=== PATIENT | male | born 1995 | race Caucasian/White ===

== ENCOUNTER 2016-12-25 16:13 | Emergency (ER) | payer OTHER ==
[~2016-12-25] VITALS: Ht 180.3 cm; Wt 72.5 kg
[2016-12-25] MEDS ORDERED: LORATADINE 10 MG TABLET PO ONE (17:45)
[2016-12-25 19:01] VITALS: BP 131/67
== END 2016-12-25 19:04 | disposition home or self-care (01) ==
LOC: EMS 16:17
DX: L50.9 Urticaria, unspecified (principal); J45.909 Unspecified asthma, uncomplicated
CPT/HCPCS: 99282

== ENCOUNTER 2017-09-03 20:41 | Emergency (ER) | payer OTHER ==
[~2017-09-03] VITALS: Ht 180.3 cm; Wt 74.5 kg
[2017-09-03] MEDS ORDERED: CEPH500 PO (20:54)
[2017-09-04 00:45] VITALS: BP 136/87
== END 2017-09-04 01:20 | disposition left against medical advice (07) ==
LOC: EMS 20:43
DX: Z53.21 Procedure and treatment not carried out due to patient leaving prior to being seen by health care provider (principal)

== ENCOUNTER 2017-09-08 11:53 | Emergency (ER) | payer OTHER ==
[~2017-09-08] VITALS: Ht 177.8 cm; Wt 74.5 kg
[~2017-09-08 11:53] MED LIST: CEPH500 PO
[2017-09-08 11:57] VITALS: BP 140/59
== END 2017-09-08 13:14 | disposition home or self-care (01) ==
LOC: EMS 11:54
DX: Z48.02 Encounter for removal of sutures (principal); J45.909 Unspecified asthma, uncomplicated
CPT/HCPCS: 99282

== ENCOUNTER 2019-04-03 17:41 | Emergency (ER) | payer MEDICAID, OTHER ==
[~2019-04-03] VITALS: Ht 180.3 cm; Wt 74.5 kg
[~2019-04-03 17:41] MED LIST changes: -CEPH500 PO; +DIVA500T52 PO; +DSS100 PO; +FLUO-191 PO; +FOLI1 PO; +MULT-1239 PO; +NALT50TA6 PO; +OLAN5TAB40 PO; +OMEP20 PO; +THIA100T67 PO
[2019-04-03] MEDS ORDERED: SPIR50 PO (18:02)
[2019-04-03 19:32] LABS: BASOPHILS % (AUTO) 0.4 % (0.0-2.0); HEMATOCRIT 43.9 % (41-53); HEMOGLOBIN 15.2 g/dL (13.5-17.5); LYMPHOCYTES # (AUTO) 1.6 K/uL (1.0-4.8); LYMPHOCYTES % (AUTO) 22.5 % (22.0-44.0); MEAN CORPUSCULAR HGB CONC 34.6 G/dL (31.0-37.0); MEAN CORPUSCULAR VOLUME 89 fL (80-100); MONOCYTES # (AUTO) 0.4 K/uL (0.1-1.0); MONOCYTES % (AUTO) 6.2 % (2.0-9.0); NEUTROPHILS # (AUTO) 5.1 K/uL (1.8-7.7); NEUTROPHILS % (AUTO) 69.9 % (40.0-70.0); PLATELET COUNT (AUTO) 258 K/uL (150-450); RED BLOOD CELL COUNT(AUTO) 4.91 MIL/uL (4.50-5.90); RED CELL DISTRIBUTION WIDTH 12.3 % (11.5-14.5)
[2019-04-03] MEDS ORDERED: SODIUM CHLORIDE 0.9% 100 ML ONE (19:45)
[2019-04-03] MEDS ORDERED: IOVERSOL 320 MG/ML 100 ML VIAL ONE (19:45)
[2019-04-03 19:48] LABS: ANION GAP 6 mmol/L (8-16); CALCIUM, TOTAL 9.4 mg/dL (8.8-10.5); CARBON DIOXIDE 31 mmol/L (22-29); CHLORIDE 100 mmol/L (98-107); CREATININE 0.83 mg/dL (0.60-1.30); GLOMERULAR FILTR. RATE CALC > 60 mL/min (>60); GLUCOSE,RANDOM 98 mg/dL (70-110); POTASSIUM 3.2 mmol/L (3.5-5.1); SODIUM SERUM 137 mmol/L (136-145); UREA NITROGEN, BLOOD 13 mg/dL (7-18)
[2019-04-03 19:54] LABS: ALANINE AMINOTRANSFERASE 36 U/L (12-78); ALBUMIN 4.8 g/dL (3.4-5.0); ALKALINE PHOSPHATASE 75 U/L (46-116); ASPARTATE AMINOTRANSFERASE 29 U/L (15-37); BILIRUBIN,TOTAL 0.9 mg/dL (0.1-1.0); TOTAL PROTEIN, SERUM 7.7 g/dL (6.4-8.2)
[2019-04-03 21:23] VITALS: BP 126/88
== END 2019-04-03 21:38 | disposition home or self-care (01) ==
LOC: EMS 17:43
DX: K62.5 Hemorrhage of anus and rectum (principal); J45.909 Unspecified asthma, uncomplicated; F31.9 Bipolar disorder, unspecified; F20.9 Schizophrenia, unspecified; F17.210 Nicotine dependence, cigarettes, uncomplicated
CPT/HCPCS: 36415; 74177; 80053; 85025; 99284; J7050; Q9967

== ENCOUNTER 2019-04-29 17:46 | Emergency (ER) | payer OTHER ==
[~2019-04-29] VITALS: Ht 180.3 cm; Wt 74.5 kg
[~2019-04-29 17:46] MED LIST changes: -DIVA500T52 PO; -DSS100 PO; -FLUO-191 PO; -FOLI1 PO; -MULT-1239 PO; -NALT50TA6 PO; -OLAN5TAB40 PO; -OMEP20 PO; +SPIR50 PO; -THIA100T67 PO
[2019-04-29 19:01] LABS: ANION GAP 9 mmol/L (8-16); CALCIUM, TOTAL 9.2 mg/dL (8.8-10.5); CARBON DIOXIDE 27 mmol/L (22-29); CHLORIDE 104 mmol/L (98-107); CREATININE 0.97 mg/dL (0.60-1.30); GLOMERULAR FILTR. RATE CALC > 60 mL/min (>60); GLUCOSE,RANDOM 84 mg/dL (70-110); SODIUM SERUM 140 mmol/L (136-145); UREA NITROGEN, BLOOD 16 mg/dL (7-18)
[2019-04-29 19:04] LABS: BASOPHILS % (AUTO) 0.2 % (0.0-2.0); EOSINOPHILS % (AUTO) 0.8 % (1.0-6.0); HEMATOCRIT 45.9 % (41-53); HEMOGLOBIN 15.5 g/dL (13.5-17.5); LYMPHOCYTES # (AUTO) 1.8 K/uL (1.0-4.8); LYMPHOCYTES % (AUTO) 15.2 % (22.0-44.0); MEAN CORPUSCULAR HEMOGLOBIN 30.2 pg (26.0-34.0); MEAN CORPUSCULAR HGB CONC 33.8 G/dL (31.0-37.0); MEAN CORPUSCULAR VOLUME 89 fL (80-100); MONOCYTES # (AUTO) 0.8 K/uL (0.1-1.0); MONOCYTES % (AUTO) 6.5 % (2.0-9.0); NEUTROPHILS # (AUTO) 9.2 K/uL (1.8-7.7); NEUTROPHILS % (AUTO) 77.3 % (40.0-70.0); PLATELET COUNT (AUTO) 269 K/uL (150-450); RED BLOOD CELL COUNT(AUTO) 5.13 MIL/uL (4.50-5.90); RED CELL DISTRIBUTION WIDTH 12.2 % (11.5-14.5)
[2019-04-29 19:07] LABS: ALANINE AMINOTRANSFERASE 22 U/L (12-78); ALBUMIN 4.5 g/dL (3.4-5.0); ALKALINE PHOSPHATASE 63 U/L (46-116); ASPARTATE AMINOTRANSFERASE 23 U/L (15-37); BILIRUBIN,TOTAL 0.8 mg/dL (0.1-1.0); TOTAL PROTEIN, SERUM 7.4 g/dL (6.4-8.2)
[2019-04-29 19:14] LABS: APPEARANCE,URINE CLOUDY (CLEAR); BILIRUBIN,URINE NEGATIVE (NEGATIVE); GLUCOSE, URINE (UA) NEGATIVE (NEGATIVE); KETONES,URINE NEGATIVE (NEGATIVE); LEUKOCYTE ESTERASE ,URINE LARGE (NEGATIVE); NITRATE,URINE NEGATIVE (NEGATIVE); OCCULT BLOOD,URINE MODERATE (NEGATIVE); PH,URINE 5.5 (5.0-8.0); PROTEIN,URINE POS 1+ (NEGATIVE)
[2019-04-29 19:41] LABS: BACTERIA,URINE Few /HPF (None Seen); SQUAMOUS EPITHELIAL CELL,UR Few /LPF (None Seen); WBC,URINE 51-100 /HPF (0-5)
[2019-04-29 19:52] LABS: PLATELET MORPHOLOGY COMMENT NORMAL
[2019-04-29] MEDS ORDERED: CefTRIAXone SODIUM 1 GM/VIAL IM ONE (21:45)
[2019-04-29] MEDS ORDERED: AZITHROMYCIN 250 MG TABLET PO ONE (21:45)
[2019-04-29] MEDS ORDERED: LIDOCAINE/PF 1% 2 ML VIAL IM ONE (22:00)
[2019-04-29 22:15] VITALS: BP 121/77
== END 2019-04-29 22:29 | disposition home or self-care (01) ==
LOC: EMS 17:46
DX: N39.0 Urinary tract infection, site not specified (principal); A64 Unspecified sexually transmitted disease; J45.909 Unspecified asthma, uncomplicated; F31.9 Bipolar disorder, unspecified; F20.9 Schizophrenia, unspecified; F17.210 Nicotine dependence, cigarettes, uncomplicated
CPT/HCPCS: 36415; 80053; 81001; 85025; 87077; 87086; 87186; 87491; 87591; 96372; 99283; 99406; J0696; J3490

== ENCOUNTER 2019-11-15 20:40 | Emergency (ER) | payer MEDICAID, OTHER ==
[~2019-11-15] VITALS: Ht 180.3 cm; Wt 74.5 kg
[2019-11-15 20:49] VITALS: BP 126/90
== END 2019-11-15 21:24 | disposition left against medical advice (07) ==
LOC: EMS 20:44
DX: Z53.21 Procedure and treatment not carried out due to patient leaving prior to being seen by health care provider (principal)

== ENCOUNTER 2019-12-06 01:00 | Emergency (ER) | payer MEDICAID ==
[~2019-12-06] VITALS: Ht 180.3 cm; Wt 72.7 kg
[2019-12-06] MEDS ORDERED: SODIUM CHLORIDE 0.9% 1,000 ML IV ONE (01:45)
[2019-12-06] MEDS ORDERED: MORPHINE SULFATE 2 MG/ML SYRINGE IVP ONE (01:45)
[2019-12-06 01:52] VITALS: BP 127/75
[2019-12-06 01:56] LABS: BASOPHILS % (AUTO) 0.1 % (0.0-2.0); EOSINOPHILS % (AUTO) 0.1 % (1.0-6.0); HEMATOCRIT 41.2 % (41-53); HEMOGLOBIN 14.5 g/dL (13.5-17.5); LYMPHOCYTES # (AUTO) 0.9 K/uL (1.0-4.8); LYMPHOCYTES % (AUTO) 6.4 % (22.0-44.0); MEAN CORPUSCULAR HEMOGLOBIN 30.3 pg (26.0-34.0); MEAN CORPUSCULAR HGB CONC 35.2 G/dL (31.0-37.0); MEAN CORPUSCULAR VOLUME 86 fL (80-100); MONOCYTES # (AUTO) 0.5 K/uL (0.1-1.0); MONOCYTES % (AUTO) 3.7 % (2.0-9.0); RED BLOOD CELL COUNT(AUTO) 4.79 MIL/uL (4.50-5.90); RED CELL DISTRIBUTION WIDTH 12.7 % (11.5-14.5)
[2019-12-06 01:57] LABS: NEUTROPHILS % (AUTO) 89.7 % (40.0-70.0)
[2019-12-06 02:05] LABS: INR 1.1 (0.9-1.1)
[2019-12-06 02:06] LABS: ANION GAP 9 mmol/L (8-16); CALCIUM, TOTAL 8.9 mg/dL (8.8-10.5); CARBON DIOXIDE 28 mmol/L (22-29); CHLORIDE 102 mmol/L (98-107); GLOMERULAR FILTR. RATE CALC > 60 mL/min (>60); GLUCOSE,RANDOM 112 mg/dL (70-110); SODIUM SERUM 139 mmol/L (136-145); UREA NITROGEN, BLOOD 20 mg/dL (7-18)
[2019-12-06 02:16] LABS: POTASSIUM 3.2 mmol/L (3.5-5.1)
[2019-12-06 02:25] LABS: PLATELET COUNT (AUTO) 286 K/uL (150-450)
== END 2019-12-06 02:07 | disposition short-term general hospital (02) ==
LOC: EMS 01:00
DX: S38.2 Traumatic amputation of external genital organs (principal); J45.909 Unspecified asthma, uncomplicated; F31.9 Bipolar disorder, unspecified; F20.9 Schizophrenia, unspecified; F17.210 Nicotine dependence, cigarettes, uncomplicated; W45.8XXA Other foreign body or object entering through skin, initial encounter; Y93.89 Activity, other specified; Y92.89 Other specified places as the place of occurrence of the external cause; Y99.8 Other external cause status
CPT/HCPCS: 36415; 80048; 85025; 85610; 99291; J7030; J2270

== ENCOUNTER 2019-12-17 13:18 | Emergency (ER) | payer MEDICAID ==
[~2019-12-17] VITALS: Ht 180.3 cm; Wt 72.7 kg
[2019-12-17] MEDS ORDERED: OLAN2.5T3 PO (13:21)
[2019-12-17] MEDS ORDERED: RISP1 PO (13:21)
[2019-12-17 15:25] VITALS: BP 122/74
== END 2019-12-17 15:26 | disposition home or self-care (01) ==
LOC: EMS 13:21
DX: Z48.02 Encounter for removal of sutures (principal); J45.909 Unspecified asthma, uncomplicated; F31.9 Bipolar disorder, unspecified; F20.9 Schizophrenia, unspecified; F17.210 Nicotine dependence, cigarettes, uncomplicated

== ENCOUNTER 2020-02-28 02:39 | Inpatient (IN) | payer MEDICAID ==
[~2020-02-28] VITALS: Ht 180.3 cm; Wt 80.0 kg
[~2020-02-28 02:39] MED LIST changes: +OLAN2.5T3 PO; +RISP1TAB27 PO
[2020-02-28] MEDS ORDERED: SODIUM CHLORIDE 0.9% 1,000 ML IV ONE ×2 (02:55→03:00)
[2020-02-28] MEDS ORDERED: MORPHINE SULFATE 4 MG/ML SYRINGE IVP ONE (03:00)
[2020-02-28] MEDS ORDERED: ONDANSETRON HCL 4 MG/2 ML VIAL IVP ONE ×2 (03:00→12:00)
[2020-02-28 03:13] LABS: BASOPHILS % (AUTO) 0.4 % (0.0-2.0); EOSINOPHILS % (AUTO) 0.7 % (1.0-6.0); HEMATOCRIT 42.8 % (41-53); HEMOGLOBIN 15.2 g/dL (13.5-17.5); LYMPHOCYTES # (AUTO) 0.9 K/uL (1.0-4.8); LYMPHOCYTES % (AUTO) 15.2 % (22.0-44.0); MEAN CORPUSCULAR HEMOGLOBIN 30.6 pg (26.0-34.0); MEAN CORPUSCULAR HGB CONC 35.5 G/dL (31.0-37.0); MEAN CORPUSCULAR VOLUME 86 fL (80-100); MONOCYTES # (AUTO) 0.4 K/uL (0.1-1.0); MONOCYTES % (AUTO) 7.4 % (2.0-9.0); NEUTROPHILS # (AUTO) 4.7 K/uL (1.8-7.7); NEUTROPHILS % (AUTO) 76.3 % (40.0-70.0); PLATELET COUNT (AUTO) 211 K/uL (150-450); RED BLOOD CELL COUNT(AUTO) 4.96 MIL/uL (4.50-5.90); RED CELL DISTRIBUTION WIDTH 12.3 % (11.5-14.5)
[2020-02-28] MEDS ORDERED: CeFAZolin 2 GM/DEXTROSE 50 ML IV ONE (03:15)
[2020-02-28] MEDS ORDERED: PERTUSS(ACELL),DIPH,TET VAC/PF 0.5 ML VIAL IM ONE (03:15)
[2020-02-28 03:28] LABS: ANION GAP 11 mmol/L (8-16); CALCIUM, TOTAL 8.8 mg/dL (8.8-10.5); CARBON DIOXIDE 25 mmol/L (22-29); CHLORIDE 103 mmol/L (98-107); CREATININE 1.04 mg/dL (0.60-1.30); GLOMERULAR FILTR. RATE CALC > 60 mL/min (>60); GLUCOSE,RANDOM 133 mg/dL (70-110); POTASSIUM 3.3 mmol/L (3.5-5.1); SODIUM SERUM 139 mmol/L (136-145); UREA NITROGEN, BLOOD 15 mg/dL (7-18)
[2020-02-28 03:33] LABS: ALANINE AMINOTRANSFERASE 26 U/L (12-78); ALBUMIN 4.2 g/dL (3.4-5.0); ALKALINE PHOSPHATASE 60 U/L (46-116); ASPARTATE AMINOTRANSFERASE 18 U/L (15-37); BILIRUBIN,TOTAL 0.6 mg/dL (0.1-1.0); TOTAL PROTEIN, SERUM 7.1 g/dL (6.4-8.2)
[2020-02-28 03:53] LABS: APPEARANCE,URINE CLEAR (CLEAR); BILIRUBIN,URINE NEGATIVE (NEGATIVE); GLUCOSE, URINE (UA) NEGATIVE (NEGATIVE); KETONES,URINE NEGATIVE (NEGATIVE); LEUKOCYTE ESTERASE ,URINE NEGATIVE (NEGATIVE); NITRATE,URINE NEGATIVE (NEGATIVE); OCCULT BLOOD,URINE LARGE (NEGATIVE); PROTEIN,URINE NEGATIVE (NEGATIVE); UROBILINOGEN,URINE 0.2 mg/dL (<=1.0)
[2020-02-28 03:59] LABS: AMPHET/METH SCREEN,URINE NEGATIVE (NEGATIVE); BARBITURATE SCREEN, URINE NEGATIVE (NEGATIVE); BENZODIAZEPINES SCREEN,URINE NEGATIVE (NEGATIVE); CANNABINOID SCREEN,URINE NEGATIVE (NEGATIVE); COCAINE SCREEN,URINE NEGATIVE (NEGATIVE); METHADONE SCREEN, URINE NEGATIVE (NEGATIVE); OPIATE SCREEN,URINE NEGATIVE (NEGATIVE)
[2020-02-28 04:00] LABS: PHENCYCLIDINE SCREEN,URINE NEGATIVE (NEGATIVE)
[2020-02-28] MEDS ORDERED: LIDOCAINE/PF 1% 30 ML VIAL ONE (04:05)
[2020-02-28] MEDS ORDERED: RINGERS SOLUTION,LACTATED 1,000 ML IV ONE (04:10)
[2020-02-28 04:14] LABS: BACTERIA,URINE Rare /HPF (None Seen); SQUAMOUS EPITHELIAL CELL,UR Few /LPF (None Seen); WBC,URINE 0-2 /HPF (0-5)
[2020-02-28] MEDS ORDERED: FentaNYL CITRATE-PF 100 MCG/2 ML VIAL IVP PRN (04:30)
[2020-02-28] MEDS ORDERED: HYDROmorphone 2 MG/ML SYRINGE IVP PRN (04:30)
[2020-02-28] MEDS ORDERED: MEPERIDINE-PF 25 MG/ML VIAL IVP PRN (04:30)
[2020-02-28] MEDS ORDERED: BACITRACIN 28.4 GM OINTMENT TP ONE (04:55)
[2020-02-28] MEDS ORDERED: SUGAMMADEX SODIUM 200 MG/2 ML VIAL IVP ONE (04:59)
[2020-02-28] MEDS ORDERED: ACETAMINOPHEN 325 MG TABLET PO PRN (05:00)
[2020-02-28] MEDS ORDERED: 0.9% SODIUM CHLORIDE 10 ML SYRINGE IVP PRN (05:00)
[2020-02-28] MEDS ORDERED: ONDANSETRON HCL 4 MG/2 ML VIAL IM PRN (05:00)
[2020-02-28] MEDS ORDERED: MORPHINE SULFATE 2 MG/ML SYRINGE IVP PRN (05:00)
[2020-02-28] MEDS ORDERED: HYDROmorphone 2 MG/ML SYRINGE ONE (05:18)
[2020-02-28] MEDS ORDERED: HYDROCODONE/ACETAMINOPHEN 5-325 MG TABLET PO PRN (05:30)
[2020-02-28 06:00] VITALS: BP 133/78
[2020-02-28 07:23] LABS: BASOPHILS % (AUTO) 0.1 % (0.0-2.0); EOSINOPHILS % (AUTO) 0 % (1.0-6.0); HEMATOCRIT 43.8 % (41-53); HEMOGLOBIN 15.5 g/dL (13.5-17.5); LYMPHOCYTES # (AUTO) 0.5 K/uL (1.0-4.8); LYMPHOCYTES % (AUTO) 5.1 % (22.0-44.0); MEAN CORPUSCULAR HEMOGLOBIN 30.8 pg (26.0-34.0); MEAN CORPUSCULAR HGB CONC 35.3 G/dL (31.0-37.0); MEAN CORPUSCULAR VOLUME 87 fL (80-100); MONOCYTES # (AUTO) 0.2 K/uL (0.1-1.0); MONOCYTES % (AUTO) 1.7 % (2.0-9.0); NEUTROPHILS # (AUTO) 8.9 K/uL (1.8-7.7); PLATELET COUNT (AUTO) 234 K/uL (150-450); RED BLOOD CELL COUNT(AUTO) 5.02 MIL/uL (4.50-5.90); RED CELL DISTRIBUTION WIDTH 12.3 % (11.5-14.5)
[2020-02-28 07:31] LABS: NEUTROPHILS % (AUTO) 93.1 % (40.0-70.0)
[2020-02-28] MEDS: OXYGEN THERAPY IH SCH ×2 (08:00→20:00)
[2020-02-28 11:23] VITALS: BP 127/69
[2020-02-28] MEDS ORDERED: FentaNYL CITRATE-PF 100 MCG/2 ML VIAL IVP ONE (12:00)
[2020-02-28] MEDS ORDERED: PROPOFOL 1% 20 ML VIAL IVP ONE (12:00)
[2020-02-28] MEDS ORDERED: SUCCINYLCHOLINE CHLORIDE 20 MG/ML 10 ML VIAL IVP ONE (12:00)
[2020-02-28] MEDS ORDERED: MIDAZOLAM HCL 2 MG/2 ML VIAL IVP ONE (12:00)
[2020-02-28] MEDS ORDERED: DEXAMETHASONE SOD PHOS 4 MG/ML VIAL IVP ONE (12:00)
[2020-02-28] MEDS ORDERED: LIDOCAINE/PF 2% 5 ML VIAL INJ ONE (12:00)
[2020-02-28] MEDS ORDERED: POTASSIUM CHLORIDE 20 MEQ ER TABLET PO ONE (13:30)
[2020-02-28 15:31] VITALS: BP 130/83
[2020-02-28 19:53] VITALS: BP 124/74
[2020-02-28 23:56] VITALS: BP 128/73
[2020-02-29 04:00] VITALS: BP 111/72
[2020-02-29 07:27] LABS: BASOPHILS % (AUTO) 0.1 % (0.0-2.0); EOSINOPHILS % (AUTO) 0.1 % (1.0-6.0); HEMATOCRIT 43.2 % (41-53); HEMOGLOBIN 15.3 g/dL (13.5-17.5); LYMPHOCYTES # (AUTO) 2.2 K/uL (1.0-4.8); LYMPHOCYTES % (AUTO) 18.2 % (22.0-44.0); MEAN CORPUSCULAR HEMOGLOBIN 30.9 pg (26.0-34.0); MEAN CORPUSCULAR HGB CONC 35.4 G/dL (31.0-37.0); MEAN CORPUSCULAR VOLUME 87 fL (80-100); MONOCYTES # (AUTO) 1.2 K/uL (0.1-1.0); NEUTROPHILS # (AUTO) 8.7 K/uL (1.8-7.7); NEUTROPHILS % (AUTO) 71.6 % (40.0-70.0); PLATELET COUNT (AUTO) 236 K/uL (150-450); RED BLOOD CELL COUNT(AUTO) 4.95 MIL/uL (4.50-5.90); RED CELL DISTRIBUTION WIDTH 12.2 % (11.5-14.5)
[2020-02-29 07:34] LABS: ANION GAP 8 mmol/L (8-16); CALCIUM, TOTAL 9.1 mg/dL (8.8-10.5); CARBON DIOXIDE 29 mmol/L (22-29); CHLORIDE 105 mmol/L (98-107); CREATININE 0.86 mg/dL (0.60-1.30); GLOMERULAR FILTR. RATE CALC > 60 mL/min (>60); GLUCOSE,RANDOM 102 mg/dL (70-110); POTASSIUM 3.9 mmol/L (3.5-5.1); SODIUM SERUM 142 mmol/L (136-145); UREA NITROGEN, BLOOD 17 mg/dL (7-18)
[2020-02-29 07:50] VITALS: BP 117/65
[2020-02-29] MEDS: OXYGEN THERAPY IH SCH (08:00)
[2020-02-29 11:56] VITALS: BP 118/69
[2020-02-29 15:53] VITALS: BP 123/69
[2020-02-29 19:30] VITALS: BP 115/65
[2020-02-29 23:15] VITALS: BP 99/55
[2020-03-01 04:27] VITALS: BP 129/63
[2020-03-01 07:14] LABS: BASOPHILS % (AUTO) 0.2 % (0.0-2.0); HEMATOCRIT 41.9 % (41-53); HEMOGLOBIN 14.7 g/dL (13.5-17.5); LYMPHOCYTES # (AUTO) 2.5 K/uL (1.0-4.8); LYMPHOCYTES % (AUTO) 34.3 % (22.0-44.0); MEAN CORPUSCULAR HEMOGLOBIN 30.8 pg (26.0-34.0); MEAN CORPUSCULAR HGB CONC 35.2 G/dL (31.0-37.0); MEAN CORPUSCULAR VOLUME 87 fL (80-100); MONOCYTES # (AUTO) 0.6 K/uL (0.1-1.0); MONOCYTES % (AUTO) 8.8 % (2.0-9.0); NEUTROPHILS % (AUTO) 55.7 % (40.0-70.0); PLATELET COUNT (AUTO) 225 K/uL (150-450); RED BLOOD CELL COUNT(AUTO) 4.79 MIL/uL (4.50-5.90); RED CELL DISTRIBUTION WIDTH 12.1 % (11.5-14.5)
[2020-03-01 07:21] LABS: ANION GAP 6 mmol/L (8-16); CALCIUM, TOTAL 9.1 mg/dL (8.8-10.5); CARBON DIOXIDE 33 mmol/L (22-29); CHLORIDE 104 mmol/L (98-107); CREATININE 0.95 mg/dL (0.60-1.30); GLOMERULAR FILTR. RATE CALC > 60 mL/min (>60); GLUCOSE,RANDOM 92 mg/dL (70-110); POTASSIUM 4.3 mmol/L (3.5-5.1); SODIUM SERUM 143 mmol/L (136-145); UREA NITROGEN, BLOOD 17 mg/dL (7-18)
[2020-03-01 07:22] VITALS: BP 113/48
[2020-03-01] MEDS: OXYGEN THERAPY IH SCH (08:00)
[2020-03-01] MEDS ORDERED: ACET-2247 PO (13:19)
[2020-03-01 14:49] VITALS: BP 121/64
== END 2020-03-01 15:15 | disposition home or self-care (01) | DRG 501 ==
LOC: EMS 02:39 → 4E 04:15
PROVIDERS: ADMIT Internal Medicine; ATTEND Internal Medicine
PROC: 0VJ80ZZ Inspection of Scrotum and Tunica Vaginalis, Open Approach (ICD-10-PCS; principal; 2020-02-28 03:31)
DX: S31.31XA Laceration without foreign body of scrotum and testes, initial encounter (principal); F20.9 Schizophrenia, unspecified; F31.9 Bipolar disorder, unspecified; R00.0 Tachycardia, unspecified; J45.909 Unspecified asthma, uncomplicated; Y33.XXXA Other specified events, undetermined intent, initial encounter; F17.210 Nicotine dependence, cigarettes, uncomplicated; Y92.89 Other specified places as the place of occurrence of the external cause; Y93.89 Activity, other specified; Y99.8 Other external cause status; Z79.899 Other long term (current) drug therapy; Z03.818 Encounter for observation for suspected exposure to other biological agents ruled out
CPT/HCPCS: 84132; 86850; 86900; 86901; 90715; 93005; 99291; G0378; J0330; J0690; J1100; J1170; J2250; J2270; J2405; J2704; J3010; J3490; J7030; J7120

== ENCOUNTER 2020-03-07 13:04 | Emergency (ER) | payer MEDICAID ==
[~2020-03-07] VITALS: Ht 180.3 cm; Wt 74.5 kg
[~2020-03-07 13:04] MED LIST changes: +ACET-2247 PO; -SPIR50 PO
[2020-03-07] MEDS ORDERED: LIDOCAINE/PF 1% 2 ML VIAL IM ONE (18:15)
[2020-03-07] MEDS ORDERED: CefTRIAXone SODIUM 1 GM/VIAL IM ONE (18:15)
[2020-03-07 19:30] VITALS: BP 121/75
== END 2020-03-07 19:31 | disposition home or self-care (01) ==
LOC: EMS 13:09
DX: N49.2 Inflammatory disorders of scrotum (principal); J45.909 Unspecified asthma, uncomplicated; F31.9 Bipolar disorder, unspecified; F20.9 Schizophrenia, unspecified; F17.210 Nicotine dependence, cigarettes, uncomplicated
CPT/HCPCS: 96372; 99283; J0696; J3490

== ENCOUNTER 2020-03-10 10:44 | Emergency (ER) | payer MEDICAID ==
[~2020-03-10] VITALS: Ht 180.3 cm; Wt 74.5 kg
[2020-03-10] MEDS ORDERED: SULF1TAB42 PO (10:52)
[2020-03-10] MEDS ORDERED: IBUP-2071 PO (10:52)
[2020-03-10 12:34] VITALS: BP 124/67
== END 2020-03-10 12:36 | disposition home or self-care (01) ==
LOC: EMS 10:57
DX: T81.31XA Disruption of external operation (surgical) wound, not elsewhere classified, initial encounter (principal); J45.909 Unspecified asthma, uncomplicated; F31.9 Bipolar disorder, unspecified; F20.9 Schizophrenia, unspecified; F17.210 Nicotine dependence, cigarettes, uncomplicated
CPT/HCPCS: Z7502

== ENCOUNTER 2020-03-14 19:26 | Emergency (ER) | payer MEDICAID ==
[~2020-03-14] VITALS: Ht 180.3 cm; Wt 74.5 kg
[~2020-03-14 19:26] MED LIST changes: -ACET-2247 PO; +IBUP-2071 PO; +SULF1TAB42 PO
[2020-03-14 19:32] VITALS: BP 129/70
== END 2020-03-14 20:25 | disposition home or self-care (01) ==
LOC: EMS 19:26
DX: T81.30XD Disruption of wound, unspecified, subsequent encounter (principal); F17.210 Nicotine dependence, cigarettes, uncomplicated; F31.9 Bipolar disorder, unspecified; F20.9 Schizophrenia, unspecified; J45.909 Unspecified asthma, uncomplicated; X58.XXXD Exposure to other specified factors, subsequent encounter
CPT/HCPCS: Z7502

== ENCOUNTER 2020-04-15 12:38 | Emergency (ER) | payer MEDICAID ==
[~2020-04-15] VITALS: Ht 177.8 cm; Wt 68.2 kg
[2020-04-15 15:06] VITALS: BP 111/64
[2020-04-15] MEDS ORDERED: IBUPROFEN 600 MG TABLET PO ONE (15:30)
== END 2020-04-15 15:48 | disposition home or self-care (01) ==
LOC: EMS 12:42
DX: K02.9 Dental caries, unspecified (principal); F31.9 Bipolar disorder, unspecified; F20.9 Schizophrenia, unspecified; J45.909 Unspecified asthma, uncomplicated; F17.210 Nicotine dependence, cigarettes, uncomplicated
CPT/HCPCS: Z7502; Z7610

== ENCOUNTER 2022-05-08 14:21 | Emergency (ER) | payer MEDICAID, OTHER ==
[~2022-05-08] VITALS: Ht 180.3 cm; Wt 85.5 kg
[~2022-05-08 14:21] MED LIST changes: -RISP1TAB27 PO; +RISP1TAB48 PO
[2022-05-08] MEDS ORDERED: ACETAMINOPHEN 500 MG TABLET PO ONE (18:45)
[2022-05-08 19:01] LABS: COVID AG,FIA SOURCE NASOPHARYNGEAL
[2022-05-08] MEDS ORDERED: OLANZapine 5 MG TABLET PO ONE (21:15)
[2022-05-08 21:46] VITALS: BP 128/74
== END 2022-05-08 21:47 | disposition home or self-care (01) ==
LOC: EMS 14:30
DX: J02.9 Acute pharyngitis, unspecified (principal); R45.851 Suicidal ideations; F25.9 Schizoaffective disorder, unspecified; F31.9 Bipolar disorder, unspecified; J45.909 Unspecified asthma, uncomplicated; Z20.822 Contact with and (suspected) exposure to COVID-19
CPT/HCPCS: 86308; 87430; 99283

== ENCOUNTER 2024-06-05 22:56 | Emergency (ER) | payer OTHER ==
[~2024-06-05] VITALS: Ht 180.3 cm; Wt 93.6 kg
[~2024-06-05 22:56] MED LIST changes: +IBUP-1493 PO; -IBUP-2071 PO; -SULF1TAB42 PO
[2024-06-05 23:02] VITALS: TEMP 98.1
[2024-06-06 01:01] LABS: BASOPHILS % (AUTO) 0.3 % (0.0-2.0); EOSINOPHILS % (AUTO) 4.1 % (1.0-6.0); HEMATOCRIT 42.6 % (41-53); HEMOGLOBIN 14.8 g/dL (13.5-17.5); LYMPHOCYTES # (AUTO) 2.9 K/uL (1.0-4.8); LYMPHOCYTES % (AUTO) 32.4 % (22.0-44.0); MEAN CORPUSCULAR HEMOGLOBIN 29.7 pg (26.0-34.0); MEAN CORPUSCULAR HGB CONC 34.7 G/dL (31.0-37.0); MEAN CORPUSCULAR VOLUME 86 fL (80-100); MONOCYTES # (AUTO) 0.7 K/uL (0.1-1.0); MONOCYTES % (AUTO) 7.4 % (2.0-9.0); NEUTROPHILS % (AUTO) 55.8 % (40.0-70.0); PLATELET COUNT (AUTO) 345 K/uL (150-450); RED BLOOD CELL COUNT(AUTO) 4.97 MIL/uL (4.50-5.90); RED CELL DISTRIBUTION WIDTH 13.1 % (11.5-14.5); WHITE BLOOD COUNT (AUTO) 8.9 K/uL (4.5-11.0)
[2024-06-06 01:03] LABS: ANION GAP 9 mmol/L (8-16); CARBON DIOXIDE 26 mmol/L (22-29); CHLORIDE 103 mmol/L (98-107); CREATININE 0.82 mg/dL (0.60-1.30); GLOMERULAR FILTR. RATE CALC > 60 mL/min (>60); GLUCOSE,RANDOM 100 mg/dL (70-110); POTASSIUM 3.6 mmol/L (3.5-5.1); SODIUM SERUM 138 mmol/L (136-145); UREA NITROGEN, BLOOD 11 mg/dL (7-18)
[2024-06-06 01:28] LABS: TROPONIN I-HIGH SENSITIVITY Less Than 4 ng/L (<76)
[2024-06-06] MEDS ORDERED: RISP-32 PO (01:57)
[2024-06-06] MEDS ORDERED: ALPR-707 PO (01:57)
[2024-06-06] MEDS ORDERED: FLUO-418 PO (01:57)
[2024-06-06] MEDS: FLUoxetine HCL 20 MG CAPSULE PO ONE (02:26)
[2024-06-06] MEDS: RisperiDONE 1 MG TABLET PO ONE (02:26)
[2024-06-06] MEDS: HydrOXYzine PAMOATE 25 MG CAPSULE PO ONE (02:26)
[2024-06-06 02:30] VITALS: BP 114/61; PULSE 68; RESP 18; O2SAT 100
== END 2024-06-06 02:54 | disposition home or self-care (01) ==
LOC: EMS 22:56
DX: F41.0 Panic disorder [episodic paroxysmal anxiety] (principal); F25.9 Schizoaffective disorder, unspecified; F15.10 Other stimulant abuse, uncomplicated; F64.0 Transsexualism; J45.909 Unspecified asthma, uncomplicated; F17.210 Nicotine dependence, cigarettes, uncomplicated; Z90.79 Acquired absence of other genital organ(s); Z98.890 Other specified postprocedural states
CPT/HCPCS: 80048; 84484; 85025; 99284

== ENCOUNTER 2025-01-12 13:52 | Emergency (ER) | payer OTHER ==
[~2025-01-12] VITALS: Ht 180.3 cm; Wt 95.5 kg
[~2025-01-12 13:52] MED LIST changes: +ALPR-707 PO; +FLUO-418 PO; +RISP-32 PO
[2025-01-12 14:02] VITALS: TEMP 98.4
[2025-01-12 14:45] VITALS: BP 125/80; PULSE 87; RESP 16; O2SAT 98
== END 2025-01-12 15:07 | disposition home or self-care (01) ==
LOC: EMS 14:01
DX: S40.021A Contusion of right upper arm, initial encounter (principal); J45.909 Unspecified asthma, uncomplicated; F31.9 Bipolar disorder, unspecified; F20.9 Schizophrenia, unspecified; Z79.899 Other long term (current) drug therapy; X58.XXXA Exposure to other specified factors, initial encounter; Y93.89 Activity, other specified; Y92.89 Other specified places as the place of occurrence of the external cause; Y99.8 Other external cause status
CPT/HCPCS: 99281; Z7502